=== PATIENT | female | born 1985 | race Caucasian/White ===

== ENCOUNTER 2020-08-29 13:02 | Emergency (ER) | payer OTHER, SELFPAY ==
[2020-08-29 13:24] VITALS: BP 136/86; PULSE 87; RESP 19; TEMP 36.6; O2SAT 100; BMI 23.0
--- NOTE | 2020-08-29 13:28 | HMH.EDUTC ---
[facility] [place] Disposition Clinical Impression: Sinusitis Qualifiers: Sinusitis location: unspecified location Chronicity: unspecified Qualified Code(s): J32.9 - Chronic sinusitis, unspecified Disposition: Home, Self-Care Condition on Discharge: Good Instructions: Sinusitis, Sinus Headache, DI for Sinusitis, Amoxicillin and Clavulanic Acid Additional Instructions: *Monitor Temp, Over the counter Motrin or Tylenol as directed/as needed Tylenol every 4 hours and Motrin every 6 hours (as long as your family doctor has told you that you can take it) for fever or pain. and straight to ER if unable to lower temp less than 101.0 after medication given *Warm salt water gargles may help to soothe the throat *Throat Lozenges *Warm fluids like tea with honey may help to soothe the throat *Sleep elevated *Humidifier/Vaporizer *Flonase 2 sprays in each nostril daily but be aware that it may take 2-3 days before you notice improvement Your throat swab was sent for culture. Those results are typically sent to your primary care. Be sure to follow up in 2-3 days with your family doctor/primary care physician if no improvement so they can review those result and treat if necessary. If you don?t have a primary care doctor, I recommend you get one but in the mean time, you will have to return to a walk in clinic Follow up IMMEDIATELY for new or worsening symptoms or no Noticeable improvement over the next 48-72 hours. 911 for difficulty breathing or swallowing You was tested for today for COVID19 your test result should be back in the next 24-48 hours, you may call to the [facility] later today or tomorrow to see if your test results are back and the result [phone] [facility] hours are 9am-9pm You was given a handout with instructions for Self Quarantine and Self isolation for while you wait on test results and what to do if they are positive If you are positive the Health Dept will be contacting you also Prescriptions: Amoxicillin/Potassium Clav [Augmentin 875-125 Tablet] 1 tab PO Q12H 7 Days #14 tab Transmission Status: [id number] Fluticasone Propionate [Flonase 50mcg nasal spray 16gm] 1 spr NS DAILY #1 bottle Transmission Status: Pending to [id number] Referrals: PCP,No [Primary Care Provider] - As needed Forms: Work/School Release Time of Disposition: 13:44 Medical Decision Making - Corky Inquiry Pt receiving controlled substance: Ivelisse Fried was queried for this patient: No Vital Signs: 08/29/20 13:24 Temperature 97.8 F Temperature Source Oral Pulse Rate [Radial] 87 Respiratory Rate 19 Blood Pressure [Right Arm] 136/86 Blood Pressure Mean [Right Arm] 102 Blood Pressure Source [Right Arm] Automatic Cuff Blood Pressure Position [Right Arm] Sitting 02 Sat by Pulse Oximetry 100 Oxygen Delivery Method Room Air - Lab Data Lab results reviewed: Yes: I reviewed the patient's lab results. Orders (Tests/Meds): ORDERS Category Date Time Status Covid-19 Nasal PCR ([facility]) Routine Lab 08/29/20 13:23 Ordered [facility] HPI - General Stated complaint: sore throat, sinus drainage Time Seen by Provider: 08/29/20 13:28 Mode of Arrival: Ambulatory Source of Information: Patient Limitations: No Limitations Description of Symptoms (Recalled from Triage Doc. by RN): sore throat, cough, congestion wants covid test. HEENT Symptoms (Recalled from RN notes): Yes Resp Symptoms (Recalled from RN notes): No Skin Symptoms (Recalled from RN notes): No MS Symptoms (Recalled from RN notes): No Functional Status (Recalled from RN notes): wnl - History of Present Illness Provider Complaint: Patient states that she has been having sinus pain and pressure along with sore throat and pressure like feeing in her ears for over a week States that she woke up this morning and was unable to talk due to the drainage and work made her come in and get tested for COVID due to working in the public States that feels like it did when she had
[2020-08-29 13:57] VITALS: BP 136/85; PULSE 87; RESP 19; TEMP 36.6; O2SAT 100
[2020-08-29 21:34] LABS: UTC Strep Screen (Rapid) Negative (Negative)
== END 2020-08-29 13:58 | disposition home or self-care (01) ==
PROVIDERS: Emergency Provider Nurse Practitioner
DX: Z20.828 Contact with and (suspected) exposure to other viral communicable diseases (principal); J32.9 Chronic sinusitis, unspecified; F17.210 Nicotine dependence, cigarettes, uncomplicated
CPT/HCPCS: 87880; 99202; U0003

== ENCOUNTER 2021-06-09 09:54 | Emergency (ER) | payer MEDICAID, SELFPAY ==
[2021-06-09 10:54] VITALS: BP 123/78; PULSE 91; RESP 18; TEMP 37.1; O2SAT 98; BMI 23.6
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
[2021-06-09 11:27] VITALS: BP 123/78; PULSE 91; RESP 18; TEMP 37.1; O2SAT 98
== END 2021-06-09 11:29 | disposition home or self-care (01) ==
PROVIDERS: Emergency Provider Nurse Practitioner; PCP Nurse Practitioner Family
DX: Z20.822 Contact with and (suspected) exposure to COVID-19 (principal)
CPT/HCPCS: 99202; G0463; U0003

== ENCOUNTER 2021-08-24 09:34 | Emergency (ER) | payer MEDICAID, SELFPAY ==
[2021-08-24 09:35] VITALS: BP 141/80; PULSE 68; RESP 20; TEMP 36.7; O2SAT 99; BMI 22.1
--- NOTE | 2021-08-24 09:44 | ECG_ITS ---
APPROVED REPORT Exam: Resting ECG HR:58 bpm ECG Measurements Heart Rate 58 AXES KS 162 P 72 QRSd 88 QRS 85 QT 408 T 60 QTc 400 Conclusion Sinus bradycardia Otherwise normal ECG Electronically signed by : Syed Christian MD 08/24/2021 20:01:47
[2021-08-24 09:53] VITALS: BMI 22.1
--- NOTE | 2021-08-24 09:54 | XR_ITS ---
PROCEDURE: XR CHEST 2V CLINICAL HISTORY: syncope COMPARISON: No exams were available for comparison FINDINGS: The cardiomediastinal silhouette and pulmonary vascularity are within normal limits. The lungs are clear without infiltrates, suspicious nodules, or pleural effusions. No acute bony abnormalities. IMPRESSION: No acute findings. Dictated by: Jose Rodriguez MD 08/24/2021 10:55 Jose Rodriguez MD in [facility] 08/24/2021 10:55
[2021-08-24 10:00] LABS: POC Glucose,Bedside 107 (70-110)
[2021-08-24 10:02] LABS: Chloride 105 mmol/L (98-107); Potassium 4.1 mmoL/L (3.5-5.1); Sodium 140 mmol/L (136-145)
[2021-08-24 10:05] LABS: Anion Gap 13.1 mEq/L (5-15); Blood Urea Nitrogen 12 mg/dl (7-17); Calcium 9.5 mg/dl (8.4-10.2); Carbon Dioxide 26 mmol/L (22.0-30.0); Creatinine Clearance Estimated 143 mL/min (50-200); Estimated Glomerular Filt Rate 113 ml/min (>60); GFR (African American) 137 ML/MIN (>60); Glucose 102 mg/dl (74-100)
[2021-08-24 10:12] LABS: HCG Qualitative, Serum Negative (Negative)
[2021-08-24 10:21] LABS: Basophils # 0.1 K/mm3 (0-0.2); Basophils % 0.9 % (0.1-2.0); Eosinophils # 0.1 K/mm3 (0.0-0.4); Eosinophils % 0.4 % (0.1-12.0); Hematocrit 48.5 % (37.0-47.0); Hemoglobin 16.2 g/dL (12.2-16.2); Lymphocytes # 5.6 K/mm3 (0.7-4.5); Lymphocytes % 34.1 % (10-50); Mean Corpuscular HGB Conc 33.4 g/dL (31.8-35.4); Mean Corpuscular Hemoglobin 31.7 pg (27.0-31.2); Mean Corpuscular Volume 94.8 fl (81-99); Monocytes # 0.6 K/mm3 (0.1-1.0); Monocytes % 3.6 % (1.7-9.3); Platelet Count 366 K/mm3 (142-424); Red Blood Count 5.12 M/mm3 (4.20-5.40); Troponin I < 0.01 ng/ml (0.00-0.034); White Blood Count 16.4 K/mm3 (4.8-10.8)
[2021-08-24 10:23] LABS: T4 (Thyroxine) 10.2 ug/dl (5.53-11.0)
[2021-08-24 10:25] LABS: MANUAL DIFFERENTIAL MANUAL DIFFERENTIAL (MANUAL DIFF)
[2021-08-24 10:36] LABS: Thyroid Stimulating Hormone 2.36 uIU/mL (0.465-4.68)
[2021-08-24 10:50] LABS: Lymphocytes % 26 % (10-50); Monocytes % 6 % (2-9); Neutrophils % 68 % (42-76); Total Cells Counted 100
[2021-08-24 11:39] VITALS: BP 95/50; PULSE 59; RESP 20; O2SAT 98
[2021-08-24 12:01] VITALS: BP 113/79; PULSE 51; RESP 18; O2SAT 98
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
[2021-08-24 13:10] VITALS: BP 112/70; PULSE 52; PULSE 57; RESP 18; RESP 20; TEMP 36.7; O2SAT 99
== END 2021-08-24 13:10 | disposition home or self-care (01) ==
PROVIDERS: Emergency Provider Student in an Organized Health Care Education/Training Program; PCP Nurse Practitioner Family
DX: R55 Syncope and collapse (principal); F41.8 Other specified anxiety disorders; F17.210 Nicotine dependence, cigarettes, uncomplicated
CPT/HCPCS: 71046; 80048; 82962; 84436; 84443; 84484; 84703; 85007; 85025; 93005; 96365; 99283

== ENCOUNTER → 2021-09-22 09:39 | Outpatient (CLI) | payer MEDICAID, SELFPAY | PROVIDERS: Visit Provider Nurse Practitioner | DX: Z20.822 Contact with and (suspected) exposure to COVID-19 (principal) | CPT/HCPCS: C9803; U0003; U0005 ==

== ENCOUNTER 2023-10-03 17:17 | Emergency (ER) | payer MEDICAID, SELFPAY ==
[2023-10-03 17:18] VITALS: BP 154/88; PULSE 61; RESP 16; TEMP 36.8; O2SAT 98; BMI 19.3
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
--- NOTE | 2023-10-03 17:35 | PC.NURSE ---
Dr. Paulson at [facility] for pt eval
[2023-10-03 17:37] VITALS: BP 128/84; PULSE 54; O2SAT 98
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
[2023-10-03 17:45] LABS: Appearance,Urine CLEAR (Clear); Bilirubin,Urine Negative (Negative); Blood, Urine Negative (Negative); Color,Urine YELLOW (Yellow); Glucose,Urine (UA) Negative (Negative); Ketones,Urine Negative (Negative); Leukocyte Esterase,Urine TRACE (Negative); Microscopic, Urine URINE MICROSCOPIC (MICROSCOPIC); Nitrate,Urine POSITIVE (Negative); PH,Urine 7.5 (5.0-8.5); Protein,Urine Negative (Negative)
[2023-10-03 17:47] LABS: Basophils # 0.1 K/mm3 (0-0.2); Basophils % 0.9 % (0.1-2.0); Eosinophils # 0.2 K/mm3 (0.0-0.4); Hematocrit 46.7 % (37.0-47.0); Hemoglobin 15.4 g/dL (12.2-16.2); Lymphocytes # 7.1 K/mm3 (0.7-4.5); Lymphocytes % 48.2 % (10-50); Mean Corpuscular HGB Conc 33.1 g/dL (31.8-35.4); Mean Corpuscular Hemoglobin 32.6 pg (27.0-31.2); Mean Corpuscular Volume 98.4 fl (81-99); Mean Platelet Volume 8.2 fl (7.4-10.4); Monocytes # 0.8 K/mm3 (0.1-1.0); Monocytes % 5.4 % (1.7-9.3); Neutrophils # 6.6 K/mm3 (1.8-7.8); Neutrophils % 44.5 % (37.0-80.0); Platelet Count 267 K/mm3 (142-424); Red Blood Count 4.74 M/mm3 (4.20-5.40); White Blood Count 14.8 K/mm3 (4.8-10.8)
[2023-10-03] MEDS: MORPHINE 4MG/ML SYRINGE 4 MG IV (17:48)
[2023-10-03] MEDS: LACTATED RINGERS 1000ML 1,000 ML 999 ML IV (17:49)
[2023-10-03 17:51] LABS: Chloride 103 mmol/L (98-107); Potassium 3.8 mmoL/L (3.5-5.1); Sodium 138 mmol/L (136-145)
[2023-10-03] MEDS: diphenhydrAMINE 25MG CAPSULE 25 MG PO (17:52)
--- NOTE | 2023-10-03 17:52 | PC.NURSE ---
AFTER RECEIVING THE MORPHINE PT STATES SHE FEELS LIKE IT IS BURNING BENADRYL 25MG PO ORDERED MEDS GIVEN
[2023-10-03 17:53] LABS: Alanine Aminotransferase 21 U/L (12-78); Aspartate Amino Transferase 28 U/L (14-36); Blood Urea Nitrogen 9 mg/dl (7-17); Creatinine Clearance Estimated 123 mL/min (50-200); Estimated Glomerular Filt Rate 112 ml/min (>60); GFR (African American) 135 ML/MIN (>60)
[2023-10-03 17:54] LABS: Albumin Level 4.4 g/dl (3.5-5.0); Albumin/Globulin Ratio 1.4 (1.1-1.8); Alkaline Phosphatase 90 U/L (38-126); Anion Gap 9.8 mEq/L (5-15); Bilirubin,Total 0.4 mg/dl (0.2-1.3); Calcium 9.1 mg/dl (8.4-10.2); Carbon Dioxide 29 mmol/L (22.0-30.0); Globulin 3.1 g/dL (1.3-3.2); Glucose 104 mg/dl (74-100); Lipase 17 U/L (23-300); Total Protein,Serum 7.5 g/dl (6.3-8.2)
[2023-10-03 18:00] VITALS: BP 128/81; PULSE 59; O2SAT 99
[2023-10-03 18:05] LABS: Bacteria,Urine Trace /lpf; WBC,Urine Occasional #/hpf (0-3)
[2023-10-03 18:06] LABS: Amorphous Sediment,Urine 1+ /lpf; Sperm,Urine 1+ /lpf
[2023-10-03 18:11] LABS: HCG Qualitative, Serum Negative (Negative)
--- NOTE | 2023-10-03 18:14 | PC.NURSE ---
PT gone to RAD via wheelchair
--- NOTE | 2023-10-03 18:27 | PC.NURSE ---
Pt returned from RAD
[2023-10-03] MEDS: SODIUM CHLORIDE 0.9% 10ML SYR (RAD ONLY) 10 ML IV (18:30)
[2023-10-03] MEDS: IOPAMIDOL-370 (76%);100ML BOTTLE 75 ML IV (18:30)
[2023-10-03 18:31] VITALS: BP 135/60; PULSE 48; O2SAT 100
--- NOTE | 2023-10-03 19:10 | PC.NURSE ---
paged at this time.
--- NOTE | 2023-10-03 19:12 | PC.NURSE ---
on phone with at this time.
[2023-10-03 19:25] VITALS: BP 125/76; PULSE 74; RESP 19; TEMP 37.1; O2SAT 98
== END 2023-10-03 19:27 | disposition home or self-care (01) ==
PROVIDERS: Emergency Provider Student in an Organized Health Care Education/Training Program; PCP Nurse Practitioner Family
DX: R10.9 Unspecified abdominal pain (principal); D72.829 Elevated white blood cell count, unspecified; R11.0 Nausea; F17.210 Nicotine dependence, cigarettes, uncomplicated
CPT/HCPCS: 74177; 80053; 81001; 83690; 84703; 85025; 96361; 96374; 96375; 99285; Q9967

== ENCOUNTER 2023-10-09 08:50 | Outpatient (CLI) | payer MEDICAID, SELFPAY ==
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
[2023-10-09] MEDS: DIATRIZOATE MEG 66% & DIATRIZOATE NA 10% 30ML UDC 15 ML PO (09:45)
[2023-10-09] MEDS: BARIUM SULFATE(LIQUID E-Z-PAQUE);355ML BOTTLE 355 ML PO (09:45)
[2023-10-09] MEDS: BARIUM SULFATE (E-Z-HD 340GM);135ML BOTTLE 135 ML PO (09:45)
[2023-10-09] MEDS: E-Z-GASII EFFERVESCENT GRANULES;1PK 1 EACH PO (09:46)
== END 2023-10-09 23:59 ==
LOC: RAD 08:51
PROVIDERS: PCP Nurse Practitioner Family; Visit Provider Surgery
DX: R10.84 Generalized abdominal pain (principal)
CPT/HCPCS: 74246; 74248

== ENCOUNTER 2024-09-16 20:06 | Emergency (ER) | payer SELFPAY ==
--- NOTE | 2024-09-16 20:03 | ECG_ITS ---
APPROVED REPORT Exam: Resting ECG HR:72 bpm ECG Measurements Heart Rate 72 AXES IN 186 P 80 QRSd 90 QRS 89 QT 356 T 76 QTc 381 Conclusion SINUS RHYTHM NORMAL ECG UNCONFIRMED REPORT Electronically signed by : RACHEL BOO, 09/16/2024 23:20:28
[2024-09-16 20:06] VITALS: BP 147/83; PULSE 67; RESP 20; TEMP 36.9; O2SAT 92; BMI 18.1
[2024-09-16 20:16] VITALS: PULSE 65
--- NOTE | 2024-09-16 20:27 | XR_ITS ---
PROCEDURE INFORMATION: Exam: XR Chest Exam date and time: 09/16/2024 8:22 PM Age: 39 years old Clinical indication: Cough; Additional info: Cough, L side cp TECHNIQUE: Imaging protocol: Radiologic exam of the chest. Views: 2 views. COMPARISON: CR XR CHEST 2V 08/24/2021 10:14 AM FINDINGS: Lungs: Unremarkable. No consolidation. Pleural spaces: Unremarkable. No pleural effusion. No pneumothorax. Heart/Mediastinum: Unremarkable. No cardiomegaly. Bones/joints: Unremarkable. IMPRESSION: No acute findings.
--- NOTE | 2024-09-16 20:29 | ED_ITS ---
Discharge Plan Disposition Patient Disposition: Home, Self-Care Prescriptions Prescriptions: New doxycycline hyclate 100 mg tablet 100 mg PO BID 7 Days Qty: 14 0RF pvdvxzqwnqcauiu-bmzhxhlvv-[id number] [Bromfed DM] 2-30-10 mg/5 mL syrup 5 ml PO Q6H PRN (Reason: cold symptoms) Qty: 118 0RF No Action buprenorphine-naloxone 8-2 mg tablet, sublingual sublingual Referrals Follow up/Referrals: Michael Ospina MD [Staff Physician] - See instructions Andreas Rand APRN [Primary Care Provider] - See instructions Activity Restrictions/Add. Instructions Additional Instructions/Restrictions: At this time it was felt you are safe to be discharged home. If new or worsening symptoms please do not hesitate to return the emergency department. Please take antibiotics as prescribed and call and schedule appoint with Dr. Ospina as soon as you are able. Clinical Impressions Clinical Impression: Atypical pneumonia, Chest pain Print Language Print Language: [place]ian Discharge ED Provider: Matias Lock [facility] General Chief Complaint: Chest Pain Stated Complaint: Chest Pain Time Seen by Provider: 09/16/24 20:12 Mode of Arrival: Ambulatory Source of Information: Patient Limitations: No Limitations Description of Symptoms (Recalled from ER Triage Doc. by RN): Pt to ED with c/o left sided, 8/10 stabbing chest pain since 1100 yesterday. Pt also reports SOA X1 week. 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 She has had symptoms over the last week however the chest pain has been over the last 24 to 48 hours and has been persistent substernal radiating across her left chest and does not go through to her back. No other acute complaints at this time. Related Data Home Medications ?Medication ?Instructions ?Recorded ?Confirmed buprenorphine 8 mg-naloxone 2 mg tab sublingual 10/04/23 10/11/23 sublingual tablet Previous Rx's ?Medication ?Instructions ?Recorded rzesolncmpdaaad-tspuvriecvqhptq-PW 5 ml PO Q6H PRN cold symptoms #118 09/16/24 2 mg-30 mg-10 mg/5 mL oral syrup mL (Bromfed DM) doxycycline hyclate 100 mg tablet 100 mg PO BID atypical pneumonia 7 09/16/24 days #14 tabs Allergies Allergy/AdvReac Type Severity Reaction Status Date / Time ondansetron (From Zofran) Allergy Verified 10/11/23 13:57 [facility] Disclaimer: The information contained in this section may have been updated after the patient was seen, as this information can be updated by other users. Surgical History History of abdominal surgery History of colonoscopy History of tooth extraction Social History Smoking Status: Current every day smoker tobacco type: cigarettes packs per day: 1 second hand exposure: Yes alcohol intake: never current occupational status: other Travel in the last 8 weeks: None Have you lived/traveled outside [place] in past 30 days?: No Contact w/someone who lives/traveled outside [place] past 30 days?: No Exposure to someone with infectious disease in past 14 days?: No Do you have a fever (greater than 100.4 F or 38 C)?: No Have you tested positive for COVID-19: No Exposed to someone with COVID-19 in past 14 days?: No Do you have a sore throat?: No Do you have a cough?: No Do you have any weakness?: No Do you have any diarrhea?: No Are you experiencing any unusual bleeding?: No Do you have any muscle aches/pain?: No Do you have any abdominal pain?: No Are you experiencing loss of taste or smell?: No Other Medical History Have you received the Flu Vaccine for this season: Yes Have you received the Pneumonia Vaccine: No ROS Obtained: Yes Systems reviewed as appropriate & no additional complaints except as documented Physical Exam General General appearance: alert and in no apparent distress Head Head exam: atraumatic and normocephalic Eye Eye exam: Present PERRL ENT ENT exam: Present mucous membranes moist Neck Neck exam: Present normal inspection Chest Chest inspection: Present normal inspection and symmetric chest wall rise Respiratory Respiratory exam: Present normal lung sounds bilaterally; Absent respiratory distress, wheezes or stridor Cardiovascular Cardiovascular exam: Present regular rate and normal rhythm Abdominal Exam Abdominal exam: Present soft; Absent tenderness Extremities Exam Extremities exam: Present normal inspection Neurological Exam Neurological exam: Present alert Psychiatric Psychiatric exam: Present normal affect Skin Skin exam: Present warm and dry HEART Score HEART Score HEART Score assessment performed?: Yes History (anamnesis): Slightly suspicious ECG: Normal Age: <45 years Risk factors: No known risk factors Troponin: </= normal limit HEART Score: 0 Critical Care Critical Care Time Critical Care Time: No Medical Decision Making Corky Inquiry Pt receiving controlled substance: No Vital Signs Vital Signs: 09/16/24 20:06 09/16/24 20:16 Temperature 98.4 F Temperature Source Oral Pulse Rate 65 Pulse Rate [Apical] 67 Respiratory Rate 20 Blood Pressure [Right Arm] 147/83 H Blood Pressure Mean [Right Arm] 104 Blood Pressure Source [Right Arm] Automatic Cuff Blood Pressure Position [Right Arm] Sitting 02 Sat by Pulse Oximetry 92 L Oxygen Delivery Method Room Air Lab Data Labs: Lab Results 09/16/24 20:00: WBC 19.6 H, RBC 5.09, Hgb 16.0, Hct 48.7 H, MCV 95.6, MCH 31.4 H , MCHC 32.9, RDW 13.6, Plt Count 322, MPV 8.0, Neut % (Auto) 56.3, Lymph % (Auto) 38.1, [place] % (Auto) 4.3, Eos % (Auto) 0.2, Baso % (Auto) 1.1, Neut # (Auto) 11.0 H, Lymph # (Auto) 7.5 H, [place] # (Auto) 0.8, Eos # (Auto) 0.0, Baso # (Auto) 0.2, D-Dimer 0.67 H, Sodium 139, Potassium 3.7, Chloride 105, Carbon Dioxide 26, Anion Gap 11.7, BUN 7, Creatinine 0.70, Estimated Creat Clear 100, Estimated GFR 93, Est GFR ( Amer) 113, Glucose 113 H, Calcium 9.6, Total Bilirubin 0.5, AST 32, ALT 20, Alkaline Phosphatase 71, Troponin I < 0.01, Total Protein 7.7, Albumin 4.6, Globulin 3.1, Albumin/Globulin Ratio 1.5, Lipase 23, Serum HCG, Qual Negative 09/16/24 20:39: SARS-CoV-2 (PCR) Not detected, Influenza A Untype (PCR) Not detected, Influenza Type B (PCR) Not detected 09/16/24 20:00 09/16/24 20:00 Response Orders (Tests/Meds): ED MEDICATIONS Discontinued Medications Generic Name Dose Route Start Last Admin Trade Name [place] PRN Reason Stop Dose Admin Acetaminophen 1,000 mg 09/16/24 20:28 09/16/24 20:36 Acetaminophen 500mg Tab PO 09/16/24 20:29 1,000 mg ONCE ONE Administration Aspirin 324 mg 09/16/24 20:33 09/16/24 20:36 Aspirin 81mg Chewable Tablet PO 09/16/24 20:34 324 mg ONCE ONE Administration Ketorolac Tromethamine 30 mg 09/16/24 20:28 09/16/24 20:36 Ketorolac 30mg/Ml Vial IV 09/16/24 20:29 30 mg ONCE ONE Administration ORDERS Category Date Time Status CXR 2 view (NOT portable) [XR chest 2V] Stat Exams 09/16/24 20:27 Taken CBC w/Auto Diff [Complete Blood Count Auto Diff] Stat Lab 09/16/24 20:00 Results CMP [Comprehensive Metabolic Panel] Stat Lab 09/16/24 20:00 Completed D-Dimer Stat Lab 09/16/24 20:00 Completed HCG Qualitative, Serum Stat Lab 09/16/24 20:00 Completed HIV (1&2) Antibody Rapid Stat Lab 09/16/24 20:00 Received Hep C Ab with Reflex to RNA Stat Lab 09/16/24 20:00 Received Lipase Stat Lab 09/16/24 20:00 Completed Rapid PCR Covid and Flu A/B Stat Lab 09/16/24 20:39 Completed Trop I [Troponin I] Stat Lab 09/16/24 20:00 Completed Troponin I Q3H Lab 09/16/24 23:30 Ordered Troponin I Q3H Lab 09/17/24 02:30 Ordered ECG Data Tracing #1: ECG Narrative: Independently interpreted by me rate of 72, rhythm is regular, no ST elevation in anatomical contiguous leads, QTc 381. MDM Narrative Medical Decision Narrative: In summary patient is a 39-year-old female with past medical history described above who presents emergency department for evaluation of chest pain and viral symptoms. Patient is hemodynamically stable nontoxic-appearing upon arrival, afebrile. Differential includes viral bronchitis, influenza, ACS, pulmonary embolism, among others. Workup we conducted with hematologic labs, chest x-ray, EKG, D-dimer. Initial inventions include Tylenol, Toradol, aspirin. Initial workup reviewed by me, leukocytosis of 19.6, D-dimer 0.67 pulmonary embolism is excluded per years criteria. No PREMA or critical electrolyte abnormality. Initial troponin undetectably low, hCG negative, viral swab negative. Given substernal chest pain that is constant if this was true ACS I would suspect troponin elevation by now due to duration of symptoms and repeat troponin will be deferred at this time. Chest x-ray shows mild interstitial opacities which given chest pain and viral symptoms and the prevalence of mycoplasma in our community will be treated with doxycycline for which the first dose will be given here. Upon repeat evaluation patient had large resolution of symptoms and is appropriate for outpatient management at this time and will follow-up with Dr. Ley on an outpatient basis.
[2024-09-16] MEDS: KETOROLAC 30MG/ML VIAL 30 MG IV (20:36)
[2024-09-16] MEDS: ASPIRIN 81MG CHEWABLE TABLET 324 MG PO (20:36)
[2024-09-16] MEDS: ACETAMINOPHEN 500MG TAB 1000 MG PO (20:36)
[2024-09-16 20:48] LABS: Coronavirus 19, PCR Not Detected (NotDetected); Influenza A, PCR Not Detected (NotDetected); Influenza B, PCR Not Detected (NotDetected)
[2024-09-16 20:49] LABS: Basophils # 0.2 K/mm3 (0-0.2); Basophils % 1.1 % (0.1-2.0); Eosinophils % 0.2 % (0.1-12.0); Hematocrit 48.7 % (37.0-47.0); Lymphocytes # 7.5 K/mm3 (0.7-4.5); Lymphocytes % 38.1 % (10-50); Mean Corpuscular HGB Conc 32.9 g/dL (31.8-35.4); Mean Corpuscular Hemoglobin 31.4 pg (27.0-31.2); Mean Corpuscular Volume 95.6 fl (81-99); Monocytes # 0.8 K/mm3 (0.1-1.0); Monocytes % 4.3 % (1.7-9.3); Neutrophils % 56.3 % (37.0-80.0); Platelet Count 322 K/mm3 (142-424); Red Blood Count 5.09 M/mm3 (4.20-5.40); Red Cell Distribution Width 13.6 % (11.5-17.5); White Blood Count 19.6 K/mm3 (4.8-10.8)
[2024-09-16 20:56] LABS: Alanine Aminotransferase 20 U/L (12-78); Albumin Level 4.6 g/dl (3.5-5.0); Albumin/Globulin Ratio 1.5 (1.1-1.8); Alkaline Phosphatase 71 U/L (38-126); Anion Gap 11.7 mEq/L (5-15); Aspartate Amino Transferase 32 U/L (14-36); Bilirubin,Total 0.5 mg/dl (0.2-1.3); Blood Urea Nitrogen 7 mg/dl (7-17); Calcium 9.6 mg/dl (8.4-10.2); Carbon Dioxide 26 mmol/L (22.0-30.0); Chloride 105 mmol/L (98-107); Creatinine Clearance Estimated 100 mL/min (50-200); Estimated Glomerular Filt Rate 93 ml/min (>60); GFR (African American) 113 ML/MIN (>60); Globulin 3.1 g/dL (1.3-3.2); Glucose 113 mg/dl (74-100); Potassium 3.7 mmoL/L (3.5-5.1); Sodium 139 mmol/L (136-145); Total Protein,Serum 7.7 g/dl (6.3-8.2)
[2024-09-16 20:58] LABS: HCG Qualitative, Serum Negative (Negative)
[2024-09-16 21:00] LABS: Lipase 23 U/L (23-300)
[2024-09-16 21:01] LABS: D-Dimer 0.67 ug/mL (0.0-0.5)
[2024-09-16 21:02] LABS: MANUAL DIFFERENTIAL MANUAL DIFFERENTIAL (MANUAL DIFF)
[2024-09-16 21:11] LABS: Troponin I < 0.01 ng/ml (0.00-0.034)
--- NOTE | 2024-09-16 22:17 | PC.NURSE ---
rounded on pt at this time. pt denies chest pain
[2024-09-16] MEDS: DOXYCYCLINE HYCL 100 MG TABLET PO (22:29)
[2024-09-16 22:40] VITALS: BP 113/69; PULSE 60; RESP 14; TEMP 36.7; O2SAT 98
[2024-09-16 23:15] LABS: Lymphocytes % 47 % (10-50); Monocytes % 2 % (2-9); Neutrophils % 51 % (42-76); Platelet Estimate Normal; RBC Morphology Normal; Total Cells Counted 100
[2024-09-17 11:15] LABS: HIV Combo NEGATIVE (Negative)
[2024-09-19 20:58] LABS: HCV Ab Reactive (Non Reactive)
== END 2024-09-16 22:41 | disposition home or self-care (01) ==
PROVIDERS: Emergency Provider Emergency Medicine; PCP Nurse Practitioner Family
DX: J18.9 Pneumonia, unspecified organism (principal); R07.9 Chest pain, unspecified; R06.02 Shortness of breath; R05.9 Cough, unspecified; M79.10 Myalgia, unspecified site
CPT/HCPCS: 71046; 80053; 83690; 84484; 84703; 85007; 85025; 85027; 85378; 86803; 87389; 87636; 93005; 96374; 99284; J1885